=== PATIENT | female | born 1950 | race Caucasian/White ===

== ENCOUNTER 2018-05-23 13:32 | Outpatient (REF) | payer MEDICARE, OTHER, SELFPAY ==
[2018-05-23 13:57] LABS: HCT 41.5 % (36.0-46.0); HGB 13.9 g/dL (12.0-15.5); Mean Corp. HGB Concentration 33.5 g/dL (32.0-36.0); Mean Corpuscular Volume 92.4 fL (80-95); Mean Platelet Volume 10.7 fL (8.0-11.0); Platelet Count 377 x1000/uL (130-400); RBC 4.49 m/cumm (4.00-5.20); RBC Distribution Width 12.9 % (11.7-14.6)
[2018-05-23 14:09] LABS: ALT 23 U/L (12-78); AST 21 U/L (15-37); Albumin 3.6 g/dL (3.4-5.0); Alkaline Phosphatase 109 U/L (46-116); Anion Gap 6.7 mmol/L (3-11); BUN 15 mg/dL (7-18); Bilirubin, Total 0.5 mg/dL (0.2-1.0); CO2 26.3 mmol/L (21.0-32.0); CREATININE 1.08 mg/dL (0.55-1.02); Calcium 8.6 mg/dL (8.5-10.1); Chloride 105 mmol/L (98-107); Cholesterol 234 mg/dL (50-200); Estimated GFR 50.92 (mL/min/1.73m2); Glucose 121 mg/dL (70-100); HDL Cholesterol 58 mg/dL (40-60); LDL CHOLESTEROL 166 mg/dL (<100); Potassium 4.5 mmol/L (3.5-5.1); Sodium 138 mmol/L (136-145); Total Protein 6.5 g/dL (6.4-8.2); Triglyceride 97 mg/dL (30-150)
== END 2018-05-23 13:33 ==
LOC: NCHCN 13:32
PROVIDERS: PCP Family Medicine; Visit Provider Family Medicine
DX: E66.8 Other obesity (principal); E78.5 Hyperlipidemia, unspecified
CPT/HCPCS: 80053; 80061; 83721; 85027

== ENCOUNTER 2018-06-10 00:28 | Outpatient (CLI) | payer MEDICARE, OTHER, SELFPAY ==
--- NOTE | 2018-06-10 10:56 | DI.MAMMO_ITS ---
SYMPTOMS/DIAGNOSIS: SCREENING, Z12.31 MAMMOGRAM: Mammograms were interpreted according to the usual protocol including computer analysis with CAD system, tomosynthesis and C view imaging. The breasts are of moderate density. There are multiple nonspecific areas of vague nodularity seen bilaterally without evidence of discrete mass or clumped microcalcification. No change in appearance in comparison with previous examination of November 2015. CONCLUSION: No specific evidence of malignancy at this time. Routine screening examinations are suggested at yearly intervals in this age group according to the ACR/ACS guidelines. Category 1, breast density category B. MQSA ASSESSMENT OF FINDINGS: Negative. Category 1. Patient will receive a letter notifying them of these results. BI-RADS category B. There are scattered areas of fibroglandular density.
== END 2018-06-10 00:48 ==
PROVIDERS: PCP Family Medicine; Visit Provider Family Medicine
DX: Z12.31 Encounter for screening mammogram for malignant neoplasm of breast (principal)
CPT/HCPCS: 77063; 77067

== ENCOUNTER 2018-09-01 15:28 | Outpatient (REF) | payer MEDICARE, OTHER, SELFPAY ==
[2018-09-01 22:28] LABS: Anion Gap 9.6 mmol/L (3-11); BUN 14 mg/dL (7-18); CO2 26.4 mmol/L (21.0-32.0); CREATININE 0.89 mg/dL (0.55-1.02); Calcium 9.2 mg/dL (8.5-10.1); Chloride 104 mmol/L (98-107); Glucose 87 mg/dL (70-100); Potassium 4.4 mmol/L (3.5-5.1); Sodium 140 mmol/L (136-145)
== END 2018-09-01 15:48 ==
LOC: NCHCN 15:28
PROVIDERS: PCP Family Medicine; Visit Provider Family Medicine
DX: I10 Essential (primary) hypertension (principal); E78.5 Hyperlipidemia, unspecified
CPT/HCPCS: 80048

== ENCOUNTER 2019-05-27 08:49 | Outpatient (REF) | payer MEDICARE, OTHER, SELFPAY ==
[2019-05-27 12:27] LABS: HCT 40.8 % (36.0-46.0); HGB 13.6 g/dL (12.0-15.5); Mean Corp. HGB Concentration 33.3 g/dL (32.0-36.0); Mean Corpuscular Hemoglobin 31.4 pg (27.0-33.0); Mean Corpuscular Volume 94.2 fL (80-95); Mean Platelet Volume 10.4 fL (8.0-11.0); Platelet Count 425 x1000/uL (130-400); RBC 4.33 m/cumm (4.00-5.20); RBC Distribution Width 12.5 % (11.7-14.6); White Blood Cell Count 7.45 k/cumm (4.4-10.8)
[2019-05-27 12:42] LABS: ALT 26 U/L (14-59); AST 26 U/L (15-37); Albumin 3.8 g/dL (3.4-5.0); Alkaline Phosphatase 111 U/L (46-116); Anion Gap 8.8 mmol/L (3-11); BUN 13 mg/dL (7-18); Bilirubin, Total 0.8 mg/dL (0.2-1.0); CO2 27.2 mmol/L (21.0-32.0); CREATININE 0.91 mg/dL (0.55-1.02); Calculated LDL 176 mg/dL; Chloride 104 mmol/L (98-107); Cholesterol 262 mg/dL (50-200); Glucose 110 mg/dL (70-100); HDL Cholesterol 69 mg/dL (40-60); Potassium 4.7 mmol/L (3.5-5.1); Sodium 140 mmol/L (136-145); Triglyceride 85 mg/dL (30-150)
== END 2019-05-27 09:09 ==
LOC: NCHCN 08:49
PROVIDERS: PCP Family Medicine; Visit Provider Family Medicine
DX: I10 Essential (primary) hypertension (principal); E78.5 Hyperlipidemia, unspecified
CPT/HCPCS: 80053; 80061; 85027

== ENCOUNTER 2019-06-22 00:46 | Outpatient (CLI) | payer MEDICARE, OTHER, SELFPAY ==
--- NOTE | 2019-06-22 13:10 | DI.MAMMO_ITS ---
EXAM: MG MAMMO SCREENING CLINICAL HISTORY: SCREENING Z12.31. TECHNIQUE: Bilateral full field digital CC and MLO mammographic images were obtained with 3D tomosyn thesis and utilizing computer aided detection (CAD). COMPARISON: There are multiple priors with the most recent from 06/10/2018. FINDINGS: Masses/Architectural Distortion: None seen. Microcalcifications: No suspicious pleomorphic-type are seen. Breast Density - Category B - Scattered areas of fibroglandular density IMPRESSION: 1. No significant interval change with no specific features of malignancy noted. 2. Unless there is more urgent need, screening mammography is recommended, as per [place] [employer] guidelines. ACR BI-RAD Category- 1 Negative A negative radiographic report should not delay biopsy if a dominant or clinically suspicious mass is present. Up to ten percent of cancers are not identified on mammography. A negative report may reinforce clinical impression. Adenosis and dense breasts may obscure an underlying neoplasm. False positive reports average 6 to 10%.
== END 2019-06-22 01:06 ==
PROVIDERS: PCP Family Medicine; Visit Provider Family Medicine
DX: Z12.31 Encounter for screening mammogram for malignant neoplasm of breast (principal)
CPT/HCPCS: 77063; 77067

== ENCOUNTER 2020-05-31 08:20 | Outpatient (REF) | payer MEDICARE, OTHER, SELFPAY ==
[2020-05-31 21:25] LABS: ALT 23 U/L (14-59); AST 31 U/L (15-37); Albumin 3.9 g/dL (3.4-5.0); Alkaline Phosphatase 103 U/L (46-116); Anion Gap 7.1 mmol/L (3-11); BUN 10 mg/dL (7-18); CO2 26.9 mmol/L (21.0-32.0); CREATININE 0.79 mg/dL (0.55-1.02); Calculated LDL 164 mg/dL (<100); Chloride 105 mmol/L (98-107); Cholesterol 247 mg/dL (<200); Glucose 107 mg/dL (74-106); HDL Cholesterol 61 mg/dL (40-60); Sodium 139 mmol/L (136-145); Total Protein 6.9 g/dL (6.4-8.2); Triglyceride 110 mg/dL (<150)
== END 2020-05-31 08:40 ==
LOC: NCHCN 08:20
PROVIDERS: PCP Family Medicine; Visit Provider Family Medicine
DX: I10 Essential (primary) hypertension (principal); E78.5 Hyperlipidemia, unspecified; E66.8 Other obesity
CPT/HCPCS: 80053; 80061

== ENCOUNTER 2020-12-13 03:17 | Outpatient (CLI) | payer MEDICARE, OTHER, SELFPAY ==
[2020-12-13 10:33] LABS: Source Nasal/Nares
[2020-12-13 14:54] LABS: COVID-19 PCR Negative (Negative)
== END 2020-12-13 03:18 | disposition home or self-care (01) ==
LOC: LBO 03:18
PROVIDERS: PCP Family Medicine; Visit Provider Podiatrist
DX: Z20.822 Contact with and (suspected) exposure to COVID-19 (principal); Z01.818 Encounter for other preprocedural examination
CPT/HCPCS: 87635

== ENCOUNTER 2020-12-16 07:14 | Day surgery (SDC) | payer MEDICARE, OTHER, SELFPAY ==
--- NOTE | 2020-12-16 07:16 | HPE_ITS ---
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 None operative treatment to fail to provide significant relief of symptoms. She is opting for surgical intervention. She understands risk and complications of surgery pertaining to but potential for pain, scarring, infection, shortening of the great toe, floating of the great toe, the need for revisional procedures if symptomatology persists. The potential for neurologic injury and vascular injury discussed. All questions were answered and the. [facility] Surgical History Appendectomy Brain surgery Cholecystectomy Family History Mother No problems noted. Father Heart disease Social History Smoking/Tobacco Use Status: Never Smoking risk assessment performed?: Yes Drug use: Never Meds Home Medications and Allergies Allergies Allergy/AdvReac Type Severity Reaction Status Date / Time No Known Allergies Allergy Unverified 03/05/16 13:37 Home Medications Medication Instructions Recorded Confirmed Type aspirin 325 mg PO DAILY tab-cap 12/30/15 03/05/16 History cholecalciferol (vitamin D3) 2,000 unit PO DAILY 12/30/15 03/05/16 History [Vitamin D] bisacodyl [Dulcolax] 5 mg PO ONCE #4 tab 01/02/16 History polyethylene glycol 3350 [Miralax] 255 gm PO for colonoscopy #1 g 01/02/16 History cranberry rwdl-Y-pxwfrhbh coag 1 tab PO DAILY 03/05/16 03/05/16 History [Cranberry Tablet] red yeast rice 1 cap PO DAILY 03/05/16 03/05/16 History Exam Narrative Exam Narrative: 70-year-old white female looking her stated age in no acute distress. Head is normocephalic Eyes PERRLA Hearing is adequate Uvular is midline airway looks assessable no suspicious lesions noted Heart had regular rate and rhythm no gallops rubs murmurs noted Lung bridges were clear Abdomen was nontender bowel sounds appreciated x4 Peripheral pulses at the ankle are palpable minus 2 out of 4, calves are soft to palpation, no peripheral edema no signs of DVT. 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 Periarticular exostosis and tenderness is appreciated to palpation. Range of motion is essentially reduced to minimal dorsiflexion. Sesamoid complex was asymptomatic to direct palpation. The remaining forefoot joints had good range of motion and were asymptomatic at this time. Neurologically grossly intact toes were downgoing no focal deficits appreciated Impressions: End-stage degenerative arthritis first MPJ right foot Plan: Era is being brought to the OR for a Najera type bunionectomy of the right foot. She understands risk and complications of surgery pertaining to pain, scarring, infection, shortening of the great toe, floating of the great toe, neurologic injury, the potential for revisional procedures if symptoms persist. All questions have been answered in detail. No promises made final outcome of surgery. COVID-19 Screening Have you, or household traveled for leisure in last 14 days?: No
[2020-12-16 07:21] VITALS: BP 139/80; PULSE 69; RESP 16; TEMP 36.6; O2SAT 98
[2020-12-16] MEDS: Lactated Ringers 1,000 ML 80 ML IV (08:00)
[2020-12-16] MEDS: ceFAZolin 1 GM/50 ML BAG IVPB (08:39)
[2020-12-16] MEDS: Bupivacaine 0.5% Pres-Free 30 ML VIAL (09:07)
[2020-12-16] MEDS: Dexamethasone 4 MG/ML VIAL (09:07)
[2020-12-16] MEDS: Lidocaine 1% Multi-Dose 50 ML VIAL (09:07)
--- NOTE | 2020-12-16 09:31 | W.PM.DSUDISC ---
Discharge Plan Disposition Patient Disposition: HOME Condition: Good Discharge Details Reason For Visit: correction hallux rigidus Attending Provider: Gil Charles Primary Care Provider: Caryl Walsh Home Meds and New Rx's Prescriptions: New oxycodone-acetaminophen 5-325 mg tablet 1 tab PO Q6H PRN (Reason: pain) Qty: 7 RF: 0 ibuprofen 600 mg tablet 600 mg PO Q6H PRN (Reason: pain and inflammatioin) Qty: 60 RF: 0 Continued aspirin 325 MG tablet 325 mg PO DAILY RF: 0 cholecalciferol (vitamin D3) [Vitamin D3] 2,000 UNIT capsule 2,000 unit PO DAILY RF: 0 bisacodyl [Dulcolax (bisacodyl)] 5 MG tablet,delayed release (DR/EC) 5 mg PO ONCE Qty: 4 RF: 0 polyethylene glycol 3350 [Miralax] 527 GM powder 255 gm PO for colonoscopy Qty: 1 RF: 0 red yeast rice 600 MG capsule 1 cap PO DAILY RF: 0 Ofxqhaqzg-Mcdointvim-Domrmki C 1 EACH tablet 1 tab PO DAILY RF: 0 citalopram [Celexa] 10 mg Tablet 10 mg PO DAILY RF: 0 lisinopril 5 mg Tablet 5 mg PO DAILY RF: 0 Discharge Instructions Activity:: Elevate Remove Dressings/Wound Care:: Do Not Remove Shower/Bathe:: Cover Diet:: Normal Diet Discharge Orders Discharge Orders: Discharge Order (Routine); Ordered 12/16/20 Ordered By: Gil Charles DS: Diagnosis Discharge Diagnosis (1) Hallux rigidus of right foot: Status: Acute
[2020-12-16 09:35] VITALS: BP 110/54; PULSE 59; RESP 17; TEMP 36; O2SAT 96
--- NOTE | 2020-12-16 09:37 | W.PM.OP ---
Date of service: 12/16/20 Time of Service: 09:37 Operative Note Operative Note Refer to Anesthesia Record Era presents for surgical repair pain associated with end-stage degenerative arthrosis of the right first MPJ, hallux rigidus. She understands risk and complications of surgery pertaining to pain, scarring, infection, floating of the great toe, shortening of the great toe, the potential for neurologic injury and ongoing pain. All questions have been answered and informed consents been obtained. Era was brought to the operative suite placed in the supine position with the right foot was prepped and draped in the usual sterile podiatric fashion. Timeout was performed the safe surgery per protocol. The right foot was exsanguinated well-padded ankle tourniquet inflated 250 mmHg. Attention was directed to the dorsal aspect of the first MPJ where a 5 cm incision was made centered over the first MPJ medial to the EHL tendon. The incision was deepened in controlled depth fashion hemostasis acquired with electrocautery as needed. Dissection was carried down to the joint capsule. The capsule was incised dorsal centrally longitudinally. The capsule was reflected medially and laterally. The first MPJ was inspected and end-stage degenerative arthritis noted. The articular cartilage was mostly destroyed periarticular exostoses around the joint noted. With power instrumentation approximately 1 cm of bone was removed from the base of the proximal phalanx. The medial lateral and dorsal component of the first metatarsal head was resected of bone spurs and exostoses and all rough and bony edges rasped smooth. Copious irrigation was performed. The hallux sat in a relaxed position and appeared to be in good water. The great toe was fixated with a 0.062 K wire retrograde fashion. The joint capsule was repaired with simple interrupted suture 3-0 Vicryl. The subcutaneous layer was repaired with simple interrupted suture 4-0 Vicryl. The skin was coapted with continuous running suture of 4-0 Monocryl. 4 mg of dexamethasone phosphate was infused deeply within the first intermetatarsal space. Half-inch Steri-Strips were applied over Mastisol. Xeroform gauze fluff compression dressings were applied. Tourniquet was released at approximately 35 minutes vascularity returning immediately to all toes. Patient left the OR with vital signs stable vascular status intact sharp and sponge counts were correct. She will be followed by myself in the office next week. Dictated with Melvin naturally speaking not reviewed for accuracy
[2020-12-16 09:40] VITALS: BP 91/51; PULSE 62; RESP 18; O2SAT 97
[2020-12-16 09:45] VITALS: BP 93/50; PULSE 61; RESP 18; O2SAT 97
[2020-12-16 09:52] VITALS: BP 109/58; PULSE 66; RESP 16; O2SAT 97
[2020-12-16 10:19] VITALS: BP 104/65; PULSE 68; RESP 16; TEMP 36.7; O2SAT 95
== END 2020-12-16 11:06 | disposition home or self-care (01) ==
PROVIDERS: PCP Family Medicine; Visit Provider Podiatrist
PROC: (CPT 28292; principal; 2020-12-16 08:30)
DX: M20.21 Hallux rigidus, right foot (principal); M19.071 Primary osteoarthritis, right ankle and foot
CPT/HCPCS: 28292; NC; J0690; J1100; J1885; J2001; J2405; J2704

== ENCOUNTER 2021-08-03 08:26 | Outpatient (REF) | payer MEDICARE, OTHER, SELFPAY ==
[2021-08-04 09:16] LABS: Albumin 3.8 g/dL (3.4-5.0); BUN 13 mg/dL (7-18); Calculated LDL 185 mg/dL (<100); Cholesterol 266 mg/dL (<200); Estimated GFR 55.14 (mL/min/1.73m2); Glucose 102 mg/dL (74-106); HDL Cholesterol 61 mg/dL (40-60); Total Protein 6.7 g/dL (6.4-8.2); Triglyceride 104 mg/dL (<150)
[2021-08-04 09:17] LABS: ALT 28 U/L (14-59); AST 20 U/L (15-37); Alkaline Phosphatase 110 U/L (46-116); Anion Gap 10.7 mmol/L (3-11); Bilirubin, Total 0.8 mg/dL (0.2-1.0); CO2 27.3 mmol/L (21.0-32.0); Chloride 106 mmol/L (98-107); Sodium 144 mmol/L (136-145)
== END 2021-08-03 08:27 | disposition home or self-care (01) ==
LOC: NCHCN 08:26
PROVIDERS: PCP Family Medicine; Visit Provider Family Medicine
DX: I10 Essential (primary) hypertension (principal); E78.5 Hyperlipidemia, unspecified
CPT/HCPCS: 80053; 80061

== ENCOUNTER 2021-08-21 00:35 | Outpatient (CLI) | payer MEDICARE, OTHER, SELFPAY ==
--- NOTE | 2021-08-21 14:30 | DI.MAMMO_ITS ---
Exam(s) MAMMO SCREENING EXAM: MAMMO SCREENING CLINICAL HISTORY: SCREENING MAMMO FOR BREAST CANCER Z12.31. TECHNIQUE: Bilateral full field digital CC and MLO mammographic images were obtained with 3D tomosyn thesis and utilizing computer aided detection (CAD). COMPARISON: Prior mammograms dating back to 2015, the most recent being May 2019. FINDINGS: There has been no significant change in the appearance and distribution the fibroglandular tissue. There are no new spiculated masses nor malignant appearing microcalcification groups. There is no significant architectural distortion nor skin thickening-retraction. IMPRESSION: No radiographic evidence of malignancy. BI-RADS Category 1 - Negative Breast Density - Category B - Scattered areas of fibroglandular density Breast density Category C or D implies that the patient has dense breast tissue. Dense breast tissue can make it harder to find cancer on a mammogram. Dense breast tissue is also associated with an incr eased risk of breast cancer. This information about the result of the mammogram report was provided to the patient to raise their awareness. Use this report when you speak with the patient about their risks for breast cancer, which includes their family history. At that time, you may recommend additional screening tests (Ultrasoun d or MRI) as these tests may add significant information. A negative radiographic report should not delay biopsy if a dominant or clinically suspicious mass is present. Up to ten percent of cancers are not identified on mammography. A negative report may reinforce clinical impression. Adenosis and dense breasts may obscure an underlying neoplasm. False positive reports average 6 to 10%. Patient will receive a letter notifying them of these results.
== END 2021-08-21 00:55 ==
PROVIDERS: PCP Family Medicine; Visit Provider Family Medicine
DX: Z12.31 Encounter for screening mammogram for malignant neoplasm of breast (principal)
CPT/HCPCS: 77063; 77067

== ENCOUNTER 2022-02-08 14:45 | Outpatient (REF) | payer MEDICARE, OTHER, SELFPAY ==
[2022-02-08 21:03] LABS: ALT 29 U/L (14-59); AST 23 U/L (15-37); Albumin 3.9 g/dL (3.4-5.0); Alkaline Phosphatase 151 U/L (46-116); Anion Gap 11.7 mmol/L (3-11); BUN 10 mg/dL (7-18); Bilirubin, Total 1.2 mg/dL (0.2-1.0); CO2 26.3 mmol/L (21.0-32.0); CREATININE 0.9 mg/dL (0.55-1.02); Calcium 8.9 mg/dL (8.5-10.1); Calculated LDL 80 mg/dL (<100); Chloride 104 mmol/L (98-107); Cholesterol 160 mg/dL (<200); Glucose 80 mg/dL (74-106); HDL Cholesterol 62 mg/dL (40-60); Magnesium 1.9 mg/dL (1.8-2.4); Potassium 4.3 mmol/L (3.5-5.1); Sodium 142 mmol/L (136-145); Total Protein 6.6 g/dL (6.4-8.2); Triglyceride 90 mg/dL (<150)
[2022-02-08 21:24] LABS: Vitamin D 25 Total 62.7 ng/mL (30-100)
== END 2022-02-08 14:46 | disposition home or self-care (01) ==
LOC: NCHCN 14:45
PROVIDERS: PCP Family Medicine; Visit Provider Family Medicine
DX: I10 Essential (primary) hypertension (principal); E66.8 Other obesity; E78.5 Hyperlipidemia, unspecified
CPT/HCPCS: 80053; 80061; 82306; 83735

== ENCOUNTER 2022-11-12 01:03 | Outpatient (CLI) | payer MEDICARE, SELFPAY ==
--- NOTE | 2022-11-12 12:00 | DI.MAMMO_ITS ---
Exam(s) MAMMO SCREENING EXAM: MAMMO SCREENING CLINICAL HISTORY: SCREENING, Z12.31 TECHNIQUE: Mammograms were interpreted according to the usual protocol including computer analysis w [employer] CAD system, tomosynthesis and C-view imaging. COMPARISON: 2015 through 2020 FINDINGS: The breasts are composed of scattered fibroglandular densities, Breast Density category B. No suspicious masses or suspicious microcalcifications are seen. No skin thickening or abnormal axillary lymph nodes are seen. There has been no significant change from prior exams. IMPRESSION: BI-RADS Category 1, Negative mammogram Yearly screening mammography is recommended. Breast Density - Category B, scattered fibroglandular densities. A negative radiographic report should not delay biopsy if a dominant or clinically suspicious mass is present. Up to ten percent of cancers are not identified on mammography. A negative report may reinforce clinical impression. Adenosis and dense breasts may obscure an underlying neoplasm. False positive reports average 6 to 10%. Patient will receive a letter notifying them of these results.
== END 2022-11-12 01:23 ==
LOC: DI 01:04
PROVIDERS: PCP Family Medicine; Visit Provider Family Medicine
DX: Z12.31 Encounter for screening mammogram for malignant neoplasm of breast (principal)
CPT/HCPCS: 77063; 77067

== ENCOUNTER → 2022-12-24 13:47 | Outpatient (BNVA) | payer MEDICARE, SELFPAY | PROVIDERS: PCP Family Medicine; Referring Provider Family Medicine; Visit Provider Psychiatry & Neurology Neurology | DX: G25.0 Essential tremor (principal); R40.4 Transient alteration of awareness; I95.1 Orthostatic hypotension; I60.7 Nontraumatic subarachnoid hemorrhage from unspecified intracranial artery | CPT/HCPCS: 99215 ==

== ENCOUNTER 2023-01-24 00:38 | Outpatient (CLI) | payer MEDICARE, SELFPAY ==
--- NOTE | 2023-01-24 07:45 | DI.MRI_ITS ---
Exam(s) MR ANGIO BRAIN WO CLINICAL HISTORY: prior basilar apex aneurysm with Y stent-coil,I67.1. TECHNIQUE: Multiplanar multisequence MRA of the brain was performed. FINDINGS: Carotid Arteries: No aneurysm, occlusion or significant stenosis. Anterior Cerebral Arteries: Right: No aneurysm, occlusion or significant stenosis. Left: No aneurysm, occlusion or significant stenosis. Middle Cerebral Arteries: Right: No aneurysm, occlusion or significant stenosis. Left: No aneurysm, occlusion or significant stenosis. Posterior Cerebral Arteries: Right: No aneurysm, occlusion or significant stenosis. Left: No aneurysm, occlusion or significant stenosis. Vertebral Arteries: Right: No aneurysm, occlusion or significant stenosis. Left: No aneurysm, occlusion or significant stenosis. Basilar Artery: There is again seen signal dropout in the distal basilar artery and proximal P1 segm ents of the ranch rider. The findings are consistent with coiling of an aneurysm. There is no evidence of recurrent aneurysm. 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 No findings to suggest recurrent aneury sm. DATA REPOSITORY:
== END 2023-01-24 00:58 ==
LOC: DI 00:38
PROVIDERS: PCP Family Medicine; Visit Provider Psychiatry & Neurology Neurology
DX: I67.1 Cerebral aneurysm, nonruptured (principal)
CPT/HCPCS: 70544

== ENCOUNTER → 2023-02-26 12:47 | Outpatient (BNVA) | payer MEDICARE, SELFPAY | PROVIDERS: PCP Family Medicine; Referring Provider Family Medicine; Visit Provider Psychiatry & Neurology Neurology | DX: R40.4 Transient alteration of awareness (principal); G25.0 Essential tremor; Z86.79 Personal history of other diseases of the circulatory system; Z79.02 Long term (current) use of antithrombotics/antiplatelets; Z79.82 Long term (current) use of aspirin; I10 Essential (primary) hypertension | CPT/HCPCS: 99214 ==

== ENCOUNTER 2023-08-14 11:07 | Outpatient (CLI) | payer MEDICARE, SELFPAY ==
[2023-08-14 11:03] LABS: ALT 26 U/L (14-59); AST 23 U/L (15-37); Albumin 3.6 g/dL (3.4-5.0); Alkaline Phosphatase 123 U/L (46-116); BUN 9 mg/dL (7-18); Calcium 9.1 mg/dL (8.5-10.1); Chloride 106 mmol/L (98-107); Estimated GFR 60.23 (mL/min/1.73m2); Glucose 127 mg/dL (74-106); Potassium 3.8 mmol/L (3.5-5.1); Sodium 142 mmol/L (136-145); Total Protein 7.2 g/dL (6.4-8.2)
[2023-08-14 11:24] LABS: Vitamin D 25 Total 54.2 ng/mL (30-100)
[2023-08-19 16:06] LABS: Calculated LDL 92 mg/dL (<100); Cholesterol 171 mg/dL (<200); HDL Cholesterol 61 mg/dL (40-60); Triglyceride 91 mg/dL (<150)
== END 2023-08-14 11:08 | disposition home or self-care (01) ==
LOC: LBO 11:07
PROVIDERS: PCP Family Medicine; Visit Provider Family Medicine
DX: I10 Essential (primary) hypertension (principal)
CPT/HCPCS: 36415; 80053; 80061; 82306

== ENCOUNTER → 2023-11-14 00:40 | Outpatient (CLI) | payer MEDICARE, SELFPAY ==
--- NOTE | 2023-11-14 | DI.MAMMO_ITS ---
Exam(s) MAMMO SCREENING EXAM: MAMMO SCREENING CLINICAL HISTORY: Screening, Z12.31 TECHNIQUE: Bilateral full field digital CC and MLO mammographic images were obtained with 3D tomosyn thesis and utilizing computer aided detection (CAD). COMPARISON: Available for comparison. FINDINGS: Masses/Architectural Distortion: None seen. Microcalcifications: No suspicious pleomorphic-type are seen. Skin Thickening/Nipple Retraction: None. IMPRESSION: 1. No significant interval change with no specific features of malignancy noted. 2. Unless there is more urgent need, screening mammography is recommended, as per [place] [employer] guidelines. BI-RADS Category 1 - Negative Breast Density - Category B - Scattered areas of fibroglandular density Breast density category C or D implies that the patient has dense breast tissue. Dense breast tissue is very common and is not abnormal but dense breast tissue can make it harder to find cancer on a ma mmogram. Also, dense breast tissue may increase their breast cancer risk. This information about the result of the mammogram report was provided to the patient to raise their awareness. Use this report when you speak with the patient about their risks for breast cancer, which includes their family hist ory. At that time, you may recommend for more screening tests (Ultrasound or MRI) as they might be us eful based on their risk. A negative radiographic report should not delay biopsy if a dominant or clinically suspicious mass is present. Up to ten percent of cancers are not identified on mammography. A negative report may reinforce clinical impression. Adenosis and dense breasts may obscure an underlying neoplasm. False positive reports average 6 to 10%. Patient will receive a letter notifying them of these results.
== END ==
PROVIDERS: PCP Family Medicine; Visit Provider Family Medicine
DX: Z12.31 Encounter for screening mammogram for malignant neoplasm of breast (principal)
CPT/HCPCS: 77063; 77067

== ENCOUNTER 2024-08-18 10:05 | Outpatient (REF) | payer MEDICARE, SELFPAY ==
[2024-08-18 14:58] LABS: ALT 63 U/L (14-59); AST 48 U/L (15-37); Albumin 3.6 g/dL (3.4-5.0); Alkaline Phosphatase 154 U/L (46-116); Anion Gap 9.9 mmol/L (3-11); BUN 9 mg/dL (7-18); Bilirubin, Total 1.71 mg/dL (0.2-1.0); CO2 26.1 mmol/L (21.0-32.0); Calcium 9.3 mg/dL (8.5-10.1); Calculated LDL 110 mg/dL (<100); Chloride 105 mmol/L (98-107); Cholesterol 193 mg/dL (<200); Estimated GFR 59.86 (mL/min/1.73m2); Glucose 130 mg/dL (74-106); HDL Cholesterol 65 mg/dL (40-60); Potassium 4.6 mmol/L (3.5-5.1); Sodium 141 mmol/L (136-145); Total Protein 6.8 g/dL (6.4-8.2); Triglyceride 94 mg/dL (<150); Vitamin D 25 Total 47.6 ng/mL (30-100)
== END 2024-08-18 10:06 | disposition home or self-care (01) ==
LOC: NCHCN 10:05
PROVIDERS: PCP Family Medicine; Visit Provider Family Medicine
DX: I10 Essential (primary) hypertension (principal); E55.9 Vitamin D deficiency, unspecified
CPT/HCPCS: 80053; 80061; 82306

== ENCOUNTER 2024-09-11 00:11 | Outpatient (CLI) | payer MEDICARE, SELFPAY ==
--- NOTE | 2024-09-11 | DI.US_ITS ---
Exam(s) US ABDOMEN LIMITED EXAM: US ABDOMEN LIMITED CLINICAL HISTORY: LIVER FUNCTION TESTS OUTSIDE REFERENCE RANGE, R94.5 TECHNIQUE: Ultrasound abdomen performed using standard protocol. COMPARISON: No exams were available for comparison FINDINGS: PANCREAS: Normal where visualized. LIVER: There is a coarsened increased echogenicity of the liver suggesting fatty infiltration. Hepat opetal flow in the Portal Vein. The liver measures in 10.6 cm length. No evidence of a hepatic mass. GALLBLADDER:Status post cholecystectomy. BILIARY SYSTEM: Common bile duct measures < 7 mm. No intrahepatic biliary ductal dilation. RIGHT KIDNEY: There is thinning of the right renal cortex suggesting renal cortical atrophy. No evid ence of renal calculi. No evidence of hydronephrosis. No renal mass or cyst identified. ASCITES: None seen. IMPRESSION: 1. Fatty infiltration of the liver. No sonographic evidence of a hepatic mass. 2. Right renal cortical atrophy. 3. Status post cholecystectomy. No biliary ductal dilatation. DATA REPOSITORY:
--- NOTE | 2024-09-11 07:30 | DI.US_ITS ---
APPROVED REPORT EXAM: Comprehensive 2D, Doppler, and color-flow Echocardiogram Patient Location: Out-Patient Solar Installer: Barrera Castano RDCS (AE) Indications: Edema Conclusion Normal left ventricular wall thickness and chamber size. Ejection fraction is 60 to 65%. Wall motio n is normal Normal right ventricular size and function Both atria are normal in size There is no structural or hemodynamically significant valvular disease Estimated right ventricular systolic pressure is 22 mmHg Wall motion Left Ventricle The left ventricle is normal size. The left ventricular systolic function is normal. The left ventric ular ejection fraction is within the normal range. There is normal left ventricular wall thickness. T here is normal LV segmental wall motion. There is no ventricular septal defect visualized. LVEF is 60 -65%. Right Ventricle The right ventricle is normal size. The right ventricular systolic function is normal. Atria The left atrium size is normal. The right atrium size is normal. The interatrial septum is intact wit h no evidence for an atrial septal defect. Aortic Valve The aortic valve is normal in structure. Aortic valve is trileaflet. There is no aortic valvular sten osis. No aortic regurgitation is present. Mitral Valve The mitral valve is normal in structure. No evidence of mitral valve stenosis. Trace mitral regurgita tion. Tricuspid Valve The tricuspid valve is normal in structure. There is no tricuspid valve stenosis. Mild tricuspid regu rgitation. The RVSP is 22.3 mmHg. Pulmonic Valve The pulmonary valve is normal in structure. There is no pulmonic valvular stenosis. Trace pulmonic re gurgitation. Great Vessels The aortic root is normal in size. The ascending aorta is normal in size. Aortic arch is normal in ca liber. IVC is normal in size and collapses >50% with inspiration. Pericardium There is no pericardial effusion. 2D Dimensions IVSD d PLAX 0.79 cm F: 0.6-1.0 Ao Root d 2.79 cm F: 2.7 - 3.3 LVPW d PLAX 0.77 cm F: 0.6 - 1.0 Ao Asc Diam d 2.87 cm F: 2.3 - 3.1 LVID d PLAX 4.17 cm F: 3.8 - 5.2 LVDs 2.86 cm F: 2.2 - 3.5 LV EF Teichholz 59.9 % FS 31.53 % LV EDV (Teich) 77.3 mL LV ESV (Teich) 31.0 mL Stroke Vol Index (Teich) 26.91 M-Mode TAPSE 1.86 cm (M/F) >1.7 Auto EF LV EDV A4C 94.6 mL LV EDV A2C 75.5 mL LV EDV BP 86.7 mL LV ESV A4C 37.9 mL LV ESV A2C 29.0 mL LV ESV BP 34.2 mL LVEF(%) A4C 59.9 % LVEF(%) A2C 61.5 % LVEF(%) BP 60.6 % LV SV A4C 56.7 ml LV SV A2C 46.4 ml LV SV BP 52.5 ml LV CO A4C 3.3 L/min LV CO A2C 2.7 L/min LV CO BP 3.0 L/min HR A4C 58.42 BPM HR A2C 58.44 BPM LV EDV Index (BP) LA Volume LA Length A4C 4.4 cm LA Length A2C 4.5 cm LA Area A4C s 12.07 cm2 LA Area A2C s 12.15 cm2 LA Vol A4C A-L 28.12 mL LA Vol A2C A-L 28.01 mL LA Vol Biplane A-L 28.3 mL LA Vol/BSA A4C A-L LA Vol/BSA A2C A-L LA Vol/BSA BP A-L 16.5 mL/m2 LA Vol A4C MOD 26.2 mL LA Vol A2C MOD 25.2 mL LA Vol BP MOD 25.8 mL RA Volume RA Area A4C 4.8 cm2 RA ESV A4C (A-L) 5.3mL RA Vol/BSA A4C A-L RA Length A4C 3.7 cm RA ESV A4C (MOD) 5.2mL LV Diastology MV E' medial 0.079 (>0.07 m/s) MV E Vmax 0.74 (0.4-1.3 m/s) MV E/E' MED 9.36 (<14) MV A Vmax 0.95 (0.4-1.3 m/s) MV E' lateral 0.080 (>0.1 m/s) E/A Ratio 0.8 MV E/E' LAT 9.15 (<14) MV E' Average 0.079 m/s MV E/E'(average) 9.26 Aortic Valve AoV Vmax 1.41 m/s LVOT Vmax 0.72 m/s AoV Peak Grad 7.9 mmHg LVOT Peak Grad 2.1 mmHg AoV Area (Vmax) 1.13 cm2 LVOT VTI 0.169 m AoV VTI 0.376 m LVOT Mean Grad 1.3 mmHg AoV Mean [place]. 1.01 m/s LVOT SV 36.89 mL AoV Mean Grad 4.5 mmHg LVOT Diam s 1.65 cm AoV Area (VTI) 0.98 cm2 AV Regurg Peak Gr. 7.90 mmHg Velocity Ratio 0.51 Mitral Valve MV DT 172 (160-240 msec) MV Vmax TIPS 0.98 m/s MV Mean Grad 1.1 (<2mmHg) MV VTI 0.304 m Pulmonary Valve PV Vmax 0.99 (0.5-1.5 m/s) RVOT Vmax 0.73 m/s PV Peak Grad 3.9 mmHg RVOT Peak Gr. 2.2 mmHg PV Mean Lincoln 0.69 m/s RVOT VTI 0.171 m PV Mean Grad 2.2 mmHg RVOT Mean Gr. 1.1 mmHg Tricuspid Valve RA Pressure 3.00 mmHg TR Vmax 2.20 m/s TR Peak Grad 19.3 mmHg RVSP (TR) 22.3 mmHg
== END 2024-09-11 00:31 ==
LOC: DI 00:11
PROVIDERS: PCP Family Medicine; Visit Provider Family Medicine
DX: R60.9 Edema, unspecified (principal)
CPT/HCPCS: 93306; 76705

== ENCOUNTER 2024-09-28 17:10 | Outpatient (REF) | payer MEDICARE, SELFPAY ==
--- NOTE | 2024-09-28 11:35 | SKI_PTH ---
PATIENT: Era Ann LOC: [facility] U#:[id number] AGE/SX: 74/F ROOM: RE09/28/[address]: Caryl Walsh : 1950 BED: DIS: 09/28/2024 SPEC #: [id number] RECD: 09/29/24 17:42 STATUS: AMALIA HOLLINS #: [id number] CLARENCE: 09/28/24 11:[address]: Caryl Walsh DEPT: Surgical Specimen RECD BY: Reina Martin Tissues: 1 - SKIN BIOPSY(SHAVE/PUNCH) Procedures: SKIN LEVEL 4 Comments: [id number]
== END 2024-09-28 17:11 | disposition home or self-care (01) ==
LOC: NCHCN 17:10
PROVIDERS: PCP Family Medicine; Visit Provider Family Medicine
DX: C44.619 Basal cell carcinoma of skin of left upper limb, including shoulder (principal)
CPT/HCPCS: 88305

== ENCOUNTER 2024-11-17 01:30 | Outpatient (CLI) | payer MEDICARE, SELFPAY ==
--- NOTE | 2024-11-17 | DI.MAMMO_ITS ---
Exam(s) MAMMO SCREENING EXAM: MAMMO SCREENING CLINICAL HISTORY: ADULT HEALTH EXAM Z00.00 SCREENING MAMMO TECHNIQUE: Mammograms were interpreted according to the usual protocol including computer analysis w [employer] CAD system, tomosynthesis and C-view imaging. COMPARISON: 2015 through 2023 FINDINGS: The breasts are composed of scattered fibroglandular densities, Breast Density category B. No suspicious masses or suspicious microcalcifications are seen. No skin thickening or abnormal axillary lymph nodes are seen. There has been no significant change from prior exams. IMPRESSION: BI-RADS Category 1, Negative mammogram Yearly screening mammography is recommended. Breast Density - Category B, scattered fibroglandular densities. A negative radiographic report should not delay biopsy if a dominant or clinically suspicious mass is present. Up to ten percent of cancers are not identified on mammography. A negative report may reinforce clinical impression. Adenosis and dense breasts may obscure an underlying neoplasm. False positive reports average 6 to 10%. Patient will receive a letter notifying them of these results.
== END 2024-11-17 01:50 ==
LOC: DI 01:30
PROVIDERS: PCP Family Medicine; Visit Provider Family Medicine
DX: Z12.31 Encounter for screening mammogram for malignant neoplasm of breast (principal); R92.323 Mammographic fibroglandular density, bilateral breasts
CPT/HCPCS: 77063; 77067

== ENCOUNTER 2025-09-04 15:44 | Outpatient (REF) | payer MEDICARE, SELFPAY | END 2025-09-04 15:45 | disposition home or self-care (01) | LOC: LBN 15:44 | PROVIDERS: PCP Family Medicine; Visit Provider Nurse Practitioner Family | DX: N30.01 Acute cystitis with hematuria (principal) | CPT/HCPCS: 87077; 87086; 87186 ==